=== PATIENT | male | born 1965 ===

== ENCOUNTER 2020-08-07 05:53 | Inpatient (IN) ==
[2020-08-01 13:35] LABS: Basophils # 0.1 10*3/uL (0.0-0.2); Basophils % 1.4 % (0.0-0.8); Eosinophils # 0.1 10*3/uL (0.0-0.87); Eosinophils % 2.2 % (0.00-10.9); Hematocrit 44.5 VOL% (42.0-52.0); Hemoglobin 14.9 GM/DL (14.0-18.0); Immature Granulocytes % 0.5 %; Immature Granulocytes Absolute 0.03 #; Lymphocytes # 1.7 10*3/uL (1.4-4.0); Lymphocytes % 26.9 % (21.2-54.2); Mean Corpuscular HGB Conc 33.5 GM/DL (32-36); Mean Corpuscular Volume 94.9 FL (87-102); Mean Platelet Volume 11.3 FL (9.6-12.0); Monocytes % 10.3 % (1.7-12.7); Neutrophils % 58.7 % (38.7-73.9); Platelet Count 175 T/CUMM (130-400); Red Blood Count 4.69 MC/CUMM (3.8-5.5); Red Cell Distribution Width 13.1 % (9.3-17.3); White Blood Count 6.3 T/CUMM (4-12)
[2020-08-01 14:00] LABS: Albumin 3.7 G/DL (3.4-5.0); Calcium 8.6 MG/DL (8.5-10.1); Osmolality,Calculated 272.8 MOS/KG (273-304); Potassium 3.2 MMOL/L (3.5-5.1); Total Protein 8.3 G/DL (5.0-7.5)
[2020-08-07] MEDS ORDERED: ACETAMINOPHEN 500 MG TABLET PO ONE (06:00)
[2020-08-07] MEDS ORDERED: FAMOTIDINE 20 MG TABLET PO ONE (06:00)
[2020-08-07] MEDS ORDERED: cefTRIAXone 1,000 MG VIAL ONE (06:03)
[2020-08-07] MEDS ORDERED: propofoL 200 MG/20 ML VIAL IV ONE ×2 (06:25→11:13)
[2020-08-07] MEDS ORDERED: ROCURONIUM 50 MG/5 ML VIAL IV ONE (06:25)
[2020-08-07] MEDS ORDERED: LIDOCAINE 2% 5 ML VIAL ONE (06:25)
[2020-08-07] MEDS ORDERED: MIDAZOLAM 2 MG/2 ML VIAL ONE (06:25)
[2020-08-07] MEDS ORDERED: fentaNYL 250 MCG/5 ML VIAL ONE ×2 (06:25→07:46)
[2020-08-07] MEDS ORDERED: SEVOFLURANE 1 UNIT/15 MINUTE INH ONE (06:25)
[2020-08-07] MEDS ORDERED: ONDANSETRON 4 MG/2 ML VIAL ONE (06:25)
[2020-08-07] MEDS: LACTATED RINGERS 1,000 ML IV SCH (06:30)
[2020-08-07] MEDS ORDERED: DEXTROSE 50% 25 GM/50 ML VIAL IV ONE ×2 (06:34→06:38)
[2020-08-07] MEDS ORDERED: DEXAMETHASONE 4 MG/1 ML VIAL ONE (06:37)
[2020-08-07] MEDS ORDERED: ROPIVACAINE 0.5% 30 ML VIAL ONE ×2 (06:37→07:04)
[2020-08-07] MEDS ORDERED: LIDOCAINE 1% 5 ML VIAL ONE (06:37)
[2020-08-07] MEDS ORDERED: ALVIMOPAN 12 MG CAPSULE PO ONE (07:30)
[2020-08-07] MEDS ORDERED: LACTATED RINGERS 1,000 ML IV ONE ×2 (07:59→09:58)
[2020-08-07] MEDS ORDERED: MANNITOL 12.5 GM/50 ML VIAL IV ONE (09:04)
[2020-08-07] MEDS ORDERED: PHENYLEPHRINE 10 MG/1 ML VIAL IV ONE (09:47)
[2020-08-07] MEDS ORDERED: SODIUM CHLORIDE 0.9% 250 ML IV ONE (09:47)
[2020-08-07] MEDS ORDERED: fentaNYL 100 MCG/2 ML VIAL ONE (10:59)
[2020-08-07] MEDS ORDERED: ACETAMINOPHEN 1,000 MG/100 ML VIAL IV ONE (11:02)
[2020-08-07] MEDS ORDERED: ATROPINE 0.4 MG/1 ML VIAL ONE (11:19)
[2020-08-07] MEDS ORDERED: SUCCINYLCHOLINE 200 MG/10 ML VIAL ONE (11:26)
[2020-08-07] MEDS ORDERED: SUGAMMADEX 200 MG/2 ML VIAL IV ONE (11:41)
[2020-08-07] MEDS ORDERED: oxyCODONE/ACETAMINOPHEN 5-325 MG TABLET PO PRN (11:41)
[2020-08-07] MEDS ORDERED: diphenhydrAMINE 50 MG/1 ML VIAL IV PRN (11:41)
[2020-08-07] MEDS ORDERED: MAGNESIUM HYDROXIDE SUSP 30 ML UDCUP PO PRN (11:41)
[2020-08-07] MEDS ORDERED: HYDROmorphone 2 MG/1 ML VIAL IV PRN (11:41)
[2020-08-07] MEDS ORDERED: ONDANSETRON 4 MG/2 ML VIAL IV PRN ×2 (11:41→12:05)
[2020-08-07] MEDS ORDERED: LACTULOSE 20 GM/30 ML UDCUP PO PRN (11:41)
[2020-08-07] MEDS ORDERED: PROMETHAZINE 25 MG/1 ML VIAL IM PRN (11:41)
[2020-08-07] MEDS ORDERED: ACETAMINOPHEN 325 MG TABLET PO PRN (11:41)
[2020-08-07 11:45] LABS: Bacteria,Urine Occasional /HPF (Few); Bilirubin,Urine Negative (Negative); Blood, Urine Negative (Negative); Glucose,Urine (UA) Negative (Negative); Hyaline Casts,Urine 6 /LPF (0-3); Ketones,Urine Negative (Negative); Mucus,Urine Many /LPF (Occasional); Nitrite,Urine Negative (Negative); Protein,Urine 30 MG/DL; RBC,Urine 8 /HPF (0-4); Squamous Epithelial Cell,Urine Occasional /HPF (0-10); Urine Appearance CLEAR (Clear); Urine Color Amber (Yellow); Urine Specific Gravity 1.019 (1.001-1.035); WBC,Urine 1 /HPF (0-6)
[2020-08-07] MEDS ORDERED: GLUCAGON 1 MG VIAL IM PRN (11:45)
[2020-08-07] MEDS ORDERED: DEXTROSE 50% 25 GM/50 ML VIAL IV PRN (11:45)
[2020-08-07] MEDS: HYDROmorphone 2 MG/1 ML VIAL IV PRN ×3 (12:13→12:28)
[2020-08-07 13:38] LABS: Basophils # 0.1 10*3/uL (0.0-0.2); Basophils % 0.5 % (0.0-0.8); Eosinophils % 0.1 % (0.00-10.9); Hematocrit 43.1 VOL% (42.0-52.0); Hemoglobin 13.7 GM/DL (14.0-18.0); Immature Granulocytes % 0.5 %; Immature Granulocytes Absolute 0.05 #; Lymphocytes # 0.6 10*3/uL (1.4-4.0); Lymphocytes % 5.5 % (21.2-54.2); Mean Corpuscular HGB Conc 31.8 GM/DL (32-36); Mean Platelet Volume 10.7 FL (9.6-12.0); Monocytes % 1.5 % (1.7-12.7); Neutrophils % 91.9 % (38.7-73.9); Platelet Count 171 T/CUMM (130-400); White Blood Count 10.1 T/CUMM (4-12)
[2020-08-07 13:57] LABS: Calcium 8.2 MG/DL (8.5-10.1); Osmolality,Calculated 277.1 MOS/KG (273-304); Potassium 4.3 MMOL/L (3.5-5.1)
[2020-08-07 14:05] LABS: Lymphocytes 8 % (20-55); Segmented Neutrophils 92 % (50-85); Total Cells Counted 100
[2020-08-07] MEDS: SODIUM CHLORIDE 0.9% 1,000 ML IV SCH ×2 (14:40→21:44)
[2020-08-07] MEDS: cefTRIAXone 1,000 MG in SYRINGE 1 EACH IV SCH (14:41)
[2020-08-07] MEDS: INSULIN REGULAR 100 UNIT/ML SUBCUT SCH ×2 (17:33→21:45)
[2020-08-07] MEDS ORDERED: ALVIMOPAN 12 MG CAPSULE PO SCH (21:00)
[2020-08-07] MEDS: FAMOTIDINE 20 MG TABLET PO SCH (21:44)
[2020-08-07] MEDS: amLODIPine 10 MG TABLET PO SCH (21:45)
[2020-08-07] MEDS: ALVIMOPAN 12 MG CAPSULE PO SCH (21:45)
[2020-08-08 07:19] LABS: Basophils % 0.2 % (0.0-0.8); Eosinophils % 0.1 % (0.00-10.9); Hematocrit 39.1 VOL% (42.0-52.0); Hemoglobin 13.4 GM/DL (14.0-18.0); Immature Granulocytes % 0.3 %; Immature Granulocytes Absolute 0.03 #; Lymphocytes # 1.1 10*3/uL (1.4-4.0); Lymphocytes % 11.8 % (21.2-54.2); Mean Corpuscular HGB Conc 34.3 GM/DL (32-36); Mean Corpuscular Volume 93.8 FL (87-102); Mean Platelet Volume 10.6 FL (9.6-12.0); Monocytes % 10.2 % (1.7-12.7); Neutrophils % 77.4 % (38.7-73.9); Platelet Count 163 T/CUMM (130-400); Red Blood Count 4.17 MC/CUMM (3.8-5.5); Red Cell Distribution Width 12.9 % (9.3-17.3); White Blood Count 9.1 T/CUMM (4-12)
[2020-08-08 07:55] LABS: Calcium 7.9 MG/DL (8.5-10.1); Osmolality,Calculated 275.8 MOS/KG (273-304); Potassium 3.6 MMOL/L (3.5-5.1)
[2020-08-08] MEDS: LACTATED RINGERS 1,000 ML IV SCH (07:58)
[2020-08-08] MEDS: INSULIN REGULAR 100 UNIT/ML SUBCUT SCH ×4 (07:58→20:18)
[2020-08-08] MEDS: ALVIMOPAN 12 MG CAPSULE PO SCH ×2 (09:20→20:49)
[2020-08-08] MEDS: TAMSULOSIN 0.4 MG CAPSULE PO SCH (09:20)
[2020-08-08] MEDS: FENOFIBRATE 145 MG TABLET PO SCH (09:20)
[2020-08-08] MEDS: FOLIC ACID INJ 1 MG in SYRINGE 1 EACH IV SCH (09:23)
[2020-08-08] MEDS: THIAMINE 200 MG/2 ML VIAL IV SCH (09:24)
[2020-08-08] MEDS: SODIUM CHLORIDE 0.9% 1,000 ML IV SCH ×2 (10:34→12:46)
[2020-08-08] MEDS: cefTRIAXone 1,000 MG in SYRINGE 1 EACH IV SCH (12:50)
[2020-08-08] MEDS: amLODIPine 10 MG TABLET PO SCH (20:50)
[2020-08-08] MEDS: FAMOTIDINE 20 MG TABLET PO SCH (20:50)
[2020-08-09 07:46] VITALS: BP 155/79
[2020-08-09 07:53] LABS: Calcium 8.4 MG/DL (8.5-10.1); Potassium 3.3 MMOL/L (3.5-5.1)
[2020-08-09] MEDS: INSULIN REGULAR 100 UNIT/ML SUBCUT SCH (08:25)
[2020-08-09] MEDS: FENOFIBRATE 145 MG TABLET PO SCH (10:12)
[2020-08-09] MEDS: TAMSULOSIN 0.4 MG CAPSULE PO SCH (10:12)
[2020-08-09] MEDS: FOLIC ACID INJ 1 MG in SYRINGE 1 EACH IV SCH (10:12)
[2020-08-09] MEDS: ALVIMOPAN 12 MG CAPSULE PO SCH (10:12)
[2020-08-09] MEDS: THIAMINE 200 MG/2 ML VIAL IV SCH (10:12)
== END 2020-08-09 10:05 | disposition home or self-care (01) | DRG 658 ==
LOC: N.OR 05:53 → N.SDSINP 05:56 → N.4E 13:08
PROVIDERS: ADMIT Surgery; ATTEND Surgery

== ENCOUNTER 2020-08-13 12:23 | Inpatient (IN) ==
[2020-08-13] MEDS ORDERED: ALBUTEROL 2.5 MG/3 ML NEB RESP TX PRN (14:49)
[2020-08-13] MEDS ORDERED: DEXTROSE 50% 25 GM/50 ML VIAL IV PRN (14:49)
[2020-08-13] MEDS ORDERED: GLUCAGON 1 MG VIAL IM PRN (14:49)
[2020-08-13] MEDS ORDERED: NIFEdipine 10 MG CAPSULE PO PRN (14:54)
[2020-08-13] MEDS ORDERED: DEXTROSE 10% 1,000 ML IV SCH (16:00)
[2020-08-13] MEDS: INSULIN LISPRO 100 UNIT/ML SUBCUT SCH ×5 (16:40→21:48)
[2020-08-13 17:02] LABS: Albumin 3.2 G/DL (3.4-5.0); Bilirubin,Total 0.5 MG/DL (0.2-1.0); Calcium 9.1 MG/DL (8.5-10.1); Osmolality,Calculated 272.2 MOS/KG (273-304); Potassium 4.1 MMOL/L (3.5-5.1)
[2020-08-13] MEDS: ENOXAPARIN 30 MG/0.3 ML SYRINGE SUBCUT SCH (17:56)
[2020-08-14] MEDS: INSULIN LISPRO 100 UNIT/ML SUBCUT SCH ×9 (02:22→20:32)
[2020-08-14 07:05] LABS: Basophils # 0.1 10*3/uL (0.0-0.2); Basophils % 0.8 % (0.0-0.8); Eosinophils # 0.1 10*3/uL (0.0-0.87); Eosinophils % 1.4 % (0.00-10.9); Hematocrit 38.7 VOL% (42.0-52.0); Hemoglobin 13.3 GM/DL (14.0-18.0); Immature Granulocytes % 0.4 %; Immature Granulocytes Absolute 0.03 #; Lymphocytes # 1.6 10*3/uL (1.4-4.0); Lymphocytes % 19.6 % (21.2-54.2); Mean Corpuscular HGB Conc 34.4 GM/DL (32-36); Mean Corpuscular Volume 93.7 FL (87-102); Mean Platelet Volume 9.9 FL (9.6-12.0); Neutrophils % 62.8 % (38.7-73.9); Platelet Count 312 T/CUMM (130-400); Red Blood Count 4.13 MC/CUMM (3.8-5.5); Red Cell Distribution Width 12.7 % (9.3-17.3); White Blood Count 8.3 T/CUMM (4-12)
[2020-08-14] MEDS: FENOFIBRATE 145 MG TABLET PO SCH (08:43)
[2020-08-14] MEDS: PANTOPRAZOLE 40 MG TABLET PO SCH (08:43)
[2020-08-14] MEDS: DOCUSATE SODIUM 100 MG CAPSULE PO SCH ×2 (08:43→20:52)
[2020-08-14] MEDS: amLODIPine 10 MG TABLET PO SCH ×2 (08:44→18:26)
[2020-08-14] MEDS: LOSARTAN 50 MG TABLET PO SCH (08:44)
[2020-08-14] MEDS ORDERED: metFORMIN 500 MG TABLET PO SCH (16:00)
[2020-08-14] MEDS: ENOXAPARIN 30 MG/0.3 ML SYRINGE SUBCUT SCH (16:11)
[2020-08-15 05:18] LABS: Calcium 8.8 MG/DL (8.5-10.1); Osmolality,Calculated 268.4 MOS/KG (273-304); Potassium 4.2 MMOL/L (3.5-5.1)
[2020-08-15] MEDS: INSULIN LISPRO 100 UNIT/ML SUBCUT SCH (07:31)
[2020-08-15] MEDS: LOSARTAN 50 MG TABLET PO SCH (08:25)
[2020-08-15] MEDS: PANTOPRAZOLE 40 MG TABLET PO SCH (08:25)
[2020-08-15] MEDS: FENOFIBRATE 145 MG TABLET PO SCH (08:25)
[2020-08-15] MEDS: DOCUSATE SODIUM 100 MG CAPSULE PO SCH (08:25)
[2020-08-15 08:29] VITALS: BP 156/79
== END 2020-08-15 10:13 | disposition home or self-care (01) | DRG 639 ==
LOC: N.CC 16:07 → SUATTDRO 16:07
PROVIDERS: ADMIT Internal Medicine; ATTEND Hospitalist